=== PATIENT | female | born 1960 | race Caucasian/White ===

== ENCOUNTER 2016-07-28 22:39 | Emergency (ER) | payer OTHER ==
[~2016-07-28] VITALS: Ht 157.5 cm; Wt 67.0 kg
[~2016-07-28 22:39] MED LIST: ABILIFY10 MG; ABILIFY20 MG PO; ARICEPT10 MG PO; ARIPIPRAZOLE10 MG PO; ARIPIPRAZOLE20 MG PO; BENADRYL50 MG PO; BENZTROPINE MESY1 MG PO; CLONIDINE1 EAC1 TD; CLOZAPINE100 MG PO; COGENTIN1 MG PO; DAILY VALUE1 EACH PO; FLUPHENAZI25 MG/1 ML IM; FLUPHENAZINE HC10 MG PO; FLUPHENAZINE HCL1 MG PO; FLUPHENAZINE HCL5 MG PO; FLUPHENAZINE PO; HYDROCORTISON28.4 GM TP; NAVANE PO; PREDNISONE20 MG PO; RISPERDAL2 MG PO; RISPERDAL25 MG/2 ML IM; RISPERDAL4 MG PO; RISPERIDONE3 MG PO; TRILAFON PO; TRIPLE ANTIB28.35 GM TP; ZANTAC300 MG PO; ZIPRASIDONE HCL40 MG PO
[2016-07-28 23:43] VITALS: BP 161/81
== END 2016-07-28 23:43 | disposition home or self-care (01) ==
LOC: EME 22:39
DX: F41.1 Generalized anxiety disorder (principal); Z73.3 Stress, not elsewhere classified; F17.200 Nicotine dependence, unspecified, uncomplicated
CPT/HCPCS: 93005; 99281; 99284

== ENCOUNTER 2016-09-13 05:08 | Inpatient (IN) | payer OTHER ==
[~2016-09-13] VITALS: Ht 157.5 cm; Wt 63.4 kg
[2016-09-13 05:45] LABS: CHLORIDE 106 mEq/L (99-109); POTASSIUM 3.9 mEq/L (3.7-5.4); SODIUM 143 mEq/L (136-147)
[2016-09-13 05:47] LABS: GLUCOSE 115 mg/dL (70-99)
[2016-09-13 05:48] LABS: ANION GAP 14 MEQ/L (2-14)
[2016-09-13 05:49] LABS: HEMATOCRIT 50.1 % (36.0-46.0); MCH 30.4 PG (29.0-34.0); MCHC 32.9 G/DL (30.0-36.0); MCV 92.3 FL (83-99); MEAN PLAT.VOLUME 8.8 uM^3 (9.5-12.4); PLATELET COUNT 291 K/uL (156-360); RBC DIS.WIDTH-CV 13.2 % (11.8-14.6); RBC DIS.WIDTH-SD 44.6 % (39-53); RED BLOOD COUNT 5.43 M/uL (3.80-5.20); WHITE BLOOD COUNT 11.4 K/uL (4.1-10.2)
[2016-09-13 05:50] LABS: SERUM ETHYL ALCOHOL < 10 mg/dL
[2016-09-13 05:51] LABS: GFR ESTIMATE (CALCULATED) > 59 mL/min/
[2016-09-13 05:53] LABS: UREA NITROGEN (BUN) 15 mg/dL (9-23)
[2016-09-13 05:54] LABS: SALICYLATE < 5.0 MG/DL (15-30)
[2016-09-13 13:10] VITALS: BP 129/63
[2016-09-13 15:30] VITALS: BP 147/66
[2016-09-13 18:45] VITALS: BP 128/63
[2016-09-14 07:45] VITALS: BP 142/63
[2016-09-14 15:36] VITALS: BP 147/80
[2016-09-14 19:43] VITALS: BP 133/62
[2016-09-15 09:01] VITALS: BP 126/65
[2016-09-15 16:05] VITALS: BP 146/73
[2016-09-15 18:29] VITALS: BP 131/63
[2016-09-16 07:46] VITALS: BP 124/56
[2016-09-16 15:56] VITALS: BP 135/63
[2016-09-17 07:59] VITALS: BP 114/59
[2016-09-17 15:54] VITALS: BP 134/69
[2016-09-18 08:14] VITALS: BP 145/78
[2016-09-18 15:45] VITALS: BP 142/79
[2016-09-19 07:55] VITALS: BP 152/76
[2016-09-19 15:30] VITALS: BP 115/59
[2016-09-20 07:59] VITALS: BP 140/77
[2016-09-20 15:41] VITALS: BP 119/69
[2016-09-21 07:53] VITALS: BP 154/72
[2016-09-21 15:29] VITALS: BP 128/63
[2016-09-22 08:00] VITALS: BP 153/78
[2016-09-22] MEDS ORDERED: ARIPIPRAZOLE10 MG PO (09:18)
[2016-09-22] MEDS ORDERED: ARIPIPRAZOLE20 MG PO (09:35)
== END 2016-09-22 13:23 | disposition home or self-care (01) | DRG 885 ==
LOC: EME 05:08 → EDOF 11:47 → 1WEST 11:47
PROVIDERS: Emergency Medicine
DX: F20.9 Schizophrenia, unspecified (principal); J45.909 Unspecified asthma, uncomplicated; F41.9 Anxiety disorder, unspecified
CPT/HCPCS: 80048; 85027; 90837; 97150 GO; 97165 GO; 99281; 99285; G0480; J1630

== ENCOUNTER 2017-03-01 23:48 | Inpatient (IN) | payer OTHER ==
[~2017-03-01] VITALS: Ht 157.5 cm; Wt 60.9 kg
[2017-03-02 03:57] LABS: BASOPHIL COUNT 0.1 K/uL (0-0.1); EOSINOPHIL (%) 1.3 % (0-5); EOSINOPHIL COUNT 0.1 K/uL (0-0.3); HEMATOCRIT 45.2 % (36.0-46.0); IMMATURE GRANULOCYTE (%) 0.1 % (0.0-0.7); INSTRUMENT ABS NEUTROPHIL CT 5.1 K/uL; LYMPHOCYTE COUNT 2.1 K/uL (1.0-2.8); MCH 30.2 PG (29.0-34.0); MCV 91.5 FL (83-99); MEAN PLAT.VOLUME 8.8 uM^3 (9.5-12.4); MONOCYTE (%) 4.3 % (3-12); MONOCYTE COUNT 0.3 K/uL (0-0.8); NEUTROPHIL (%) 66.1 % (45-76); NEUTROPHIL COUNT 5.1 K/uL (1.8-6.4); PLATELET COUNT 249 K/uL (156-360); RBC DIS.WIDTH-CV 12.9 % (11.8-14.6); RBC DIS.WIDTH-SD 43.3 % (39-53); RED BLOOD COUNT 4.94 M/uL (3.80-5.20); WHITE BLOOD COUNT 7.7 K/uL (4.1-10.2)
[2017-03-02 04:04] LABS: CHLORIDE 108 mEq/L (99-109)
[2017-03-02 04:05] LABS: POTASSIUM 3.6 mEq/L (3.7-5.4); SODIUM 144 mEq/L (136-147)
[2017-03-02 04:06] LABS: GLUCOSE 106 mg/dL (70-99)
[2017-03-02 04:08] LABS: ANION GAP 9 MEQ/L (2-14)
[2017-03-02 04:09] LABS: SERUM ETHYL ALCOHOL < 10 mg/dL
[2017-03-02 04:10] LABS: GFR ESTIMATE (CALCULATED) > 59 mL/min/
[2017-03-02 04:11] LABS: UREA NITROGEN (BUN) 15 mg/dL (9-23)
[2017-03-02 04:25] LABS: AMPHETAMINE NEGATIVE (500 ng/mL); BARBITURATES NEGATIVE (200 ng/mL); BENZODIAZEPINES NEGATIVE (150 ng/mL); COCAINE NEGATIVE (150 ng/mL); INTERNAL CONTROLS VALID? YES; METHADONE NEGATIVE (200 ng/mL); METHAMPHETAMINE NEGATIVE (500 ng/mL); OPIATES (MORPHINE) NEGATIVE (100 ng/mL); OXYCODONE NEGATIVE (100 ng/mL); PHENCYCLIDINE NEGATIVE (25 ng/mL); PROPOXYPHENE NEGATIVE (300 ng/mL); THC CANNABINOIDS NEGATIVE (50 ng/mL); TRICYCLIC ANTIDEPRESSANTS NEGATIVE (300 ng/mL)
[2017-03-02 05:26] VITALS: BP 146/79
[2017-03-02 07:51] VITALS: BP 130/74
[2017-03-02 15:15] VITALS: BP 126/69
[2017-03-03 07:58] VITALS: BP 151/70
[2017-03-03 15:43] VITALS: BP 111/62
[2017-03-04 07:58] VITALS: BP 147/66
[2017-03-04 16:07] VITALS: BP 184/83
[2017-03-04 17:02] VITALS: BP 140/68
[2017-03-05 08:21] VITALS: BP 125/66
[2017-03-05 16:29] VITALS: BP 138/68
[2017-03-06 07:59] VITALS: BP 143/81
[2017-03-06] MEDS ORDERED: FLUPHENAZINE HC10 MG PO (09:34)
[2017-03-06] MEDS ORDERED: FLUPHENAZI25 MG/1 ML IM (09:34)
== END 2017-03-06 12:39 | disposition home or self-care (01) | DRG 885 ==
LOC: EME 23:48 → 1WEST 03-02 04:28 → EDOF 03-02 04:28 → ENRESERV 03-02 04:52 → 1WEST 03-02 05:12
PROVIDERS: Emergency Medicine
DX: F20.3 Undifferentiated schizophrenia (principal); Z91.19 Patient's noncompliance with other medical treatment and regimen; Z91.14 Patient's other noncompliance with medication regimen; Z91.83 Wandering in diseases classified elsewhere; F32.9 Major depressive disorder, single episode, unspecified; F41.9 Anxiety disorder, unspecified; J45.909 Unspecified asthma, uncomplicated; F17.200 Nicotine dependence, unspecified, uncomplicated; Z81.8 Family history of other mental and behavioral disorders
CPT/HCPCS: 80048; 85025; 90839; 97150 GO; 97166 GO; 99281; 99285; G0480; J2680

== ENCOUNTER 2017-10-23 12:28 | Inpatient (IN) | payer OTHER ==
[~2017-10-23] VITALS: Ht 172.7 cm; Wt 59.4 kg
[2017-10-23 13:22] LABS: BASOPHIL COUNT 0.1 K/uL (0-0.1); EOSINOPHIL (%) 1.2 % (0-5); EOSINOPHIL COUNT 0.1 K/uL (0-0.3); HEMATOCRIT 45.7 % (36.0-46.0); HEMOGLOBIN 15.7 G/DL (11.9-15.5); IMMATURE GRANULOCYTE (%) 0.7 % (0.0-0.7); LYMPHOCYTE (%) 30.2 % (15-42); LYMPHOCYTE COUNT 1.8 K/uL (1.0-2.8); MCH 31.2 PG (29.0-34.0); MCHC 34.4 G/DL (30.0-36.0); MCV 90.9 FL (83-99); MONOCYTE (%) 5.8 % (3-12); MONOCYTE COUNT 0.3 K/uL (0-0.8); NEUTROPHIL (%) 61.1 % (45-76); NEUTROPHIL COUNT 3.6 K/uL (1.8-6.4); PLATELET COUNT 276 K/uL (156-360); RBC DIS.WIDTH-SD 42.7 % (39-53); RED BLOOD COUNT 5.03 M/uL (3.80-5.20); WHITE BLOOD COUNT 5.9 K/uL (4.1-10.2)
[2017-10-23 13:29] LABS: CHLORIDE 106 mEq/L (99-109); POTASSIUM 3.2 mEq/L (3.7-5.4); SODIUM 146 mEq/L (136-147)
[2017-10-23 13:30] LABS: GLUCOSE 107 mg/dL (70-99)
[2017-10-23 13:34] LABS: CREATININE 0.8 mg/dL (0.6-1.3); GFR ESTIMATE (CALCULATED) > 59 mL/min/; SERUM ETHYL ALCOHOL < 10 mg/dL
[2017-10-23 13:35] LABS: UREA NITROGEN (BUN) 12 mg/dL (9-23)
[2017-10-23 14:31] LABS: AMPHETAMINE NEGATIVE (500 ng/mL); BARBITURATES NEGATIVE (200 ng/mL); BENZODIAZEPINES NEGATIVE (150 ng/mL); BUPRENORPHINE NEGATIVE (10 ng/mL); COCAINE NEGATIVE (150 ng/mL); METHADONE NEGATIVE (200 ng/mL); METHAMPHETAMINE NEGATIVE (500 ng/mL); OPIATES (MORPHINE) NEGATIVE (100 ng/mL); OXYCODONE NEGATIVE (100 ng/mL); PHENCYCLIDINE NEGATIVE (25 ng/mL); PROPOXYPHENE NEGATIVE (300 ng/mL); THC CANNABINOIDS NEGATIVE (50 ng/mL); TRICYCLIC ANTIDEPRESSANTS NEGATIVE (300 ng/mL)
[2017-10-23 15:56] VITALS: BP 148/69
[2017-10-23 16:29] VITALS: BP 148/69
[2017-10-23] MEDS ORDERED: ABILIFY5 MG PO (16:46)
[2017-10-24 07:48] VITALS: BP 113/65
[2017-10-24 15:19] VITALS: BP 134/74
[2017-10-25 07:41] VITALS: BP 136/74
[2017-10-25 15:44] VITALS: BP 132/75
[2017-10-26 08:07] VITALS: BP 133/69
[2017-10-26 16:16] VITALS: BP 150/71
[2017-10-27 07:54] VITALS: BP 133/82
[2017-10-27 16:35] VITALS: BP 147/68
[2017-10-28 07:48] VITALS: BP 120/59
[2017-10-28 17:08] VITALS: BP 161/75
[2017-10-29 08:03] VITALS: BP 128/74
[2017-10-29 16:10] VITALS: BP 133/63
[2017-10-30 07:52] VITALS: BP 120/66
[2017-10-30 16:27] VITALS: BP 118/73
[2017-10-31 09:26] VITALS: BP 121/63
[2017-10-31] MEDS ORDERED: RISPERDAL2 MG PO (10:42)
[2017-10-31] MEDS ORDERED: ESCITALOPRAM OXA5 MG PO (10:42)
[2017-10-31 16:54] VITALS: BP 131/70
== END 2017-10-31 16:44 | disposition home or self-care (01) | DRG 885 ==
LOC: EME 12:28 → 1WEST 14:24 → EDOF 14:24 → ENRESERV 15:15 → 1WEST 15:43
PROVIDERS: Emergency Medicine
DX: F20.1 Disorganized schizophrenia (principal); E87.6 Hypokalemia; F17.200 Nicotine dependence, unspecified, uncomplicated; G24.01 Drug induced subacute dyskinesia
CPT/HCPCS: 80048; 84132; 85025; 90839; 97150 GO; 97166 GO; 99281; 99285; G0480; J2794